=== PATIENT | male | born 1950 | race Caucasian/White ===

== ENCOUNTER 2021-05-15 12:51 | Emergency (ER) | payer OTHER ==
[~2021-05-15] VITALS: Ht 180.3 cm; Wt 93.0 kg
[2021-05-15 14:00] VITALS: BP 135/59
== END 2021-05-15 14:36 | disposition home or self-care (01) ==
LOC: ER 12:51
DX: S29.011A Strain of muscle and tendon of front wall of thorax, initial encounter (principal); V43.52XA Car driver injured in collision with other type car in traffic accident, initial encounter; Y93.89 Activity, other specified; Y92.89 Other specified places as the place of occurrence of the external cause; Y99.8 Other external cause status
CPT/HCPCS: 71101

== ENCOUNTER 2023-01-31 04:09 | Emergency (ER) | payer OTHER ==
[2023-01-31] MEDS ORDERED: EPINEPHrine HCL 250 ML IV ONE (04:18)
[2023-01-31 04:20] VITALS: PULSE 110; RESP 24; TEMP 96.5; O2SAT 86
[2023-01-31] MEDS ORDERED: EPINEPHrine HCL 250 ML IV SCH (04:30)
[2023-01-31 05:12] LABS: INR 1.26 (0.9-1.15); Partial Thromboplastin Time 48.1 SEC (24.5-34.5)
[2023-01-31] MEDS ORDERED: DOBUTamine 1000MCG/ML 250 ML IV ONE ×3 (05:13→06:57)
[2023-01-31 05:18] LABS: Urine Bacteria NONE SEEN /hpf (None Seen); Urine Blood 1+ /uL (Negative); Urine Clarity Clear (Clear); Urine Color Colorless (Yellow); Urine Hyaline Cast FEW /lpf (0 - 2); Urine Protein, UAD Negative (Negative); Urine Specific Gravity 1.024 (1.001-1.035); Urine Urobilinogen Normal (Negative); Urine WBC 3 /hpf (0 - 3); Urine pH 6.5 (5.0-8.0)
[2023-01-31 05:19] LABS: Alanine Aminotransferase 71 U/L (7-40); Albumin 3.2 g/dL (3.2-4.8); Alkaline Phosphatase 90 U/L (46-116); Anion Gap 15.9 (5-15); Aspartate Aminotransferase 100 U/L (13-40); BUN/Creatinine Ratio 10.2 (10.0-20.0); Bilirubin, Total 0.2 mg/dL (0.2-1.0); Blood Urea Nitrogen 13 mg/dL (9-23); Calcium 10.2 mg/dL (8.7-10.4); Carbon Dioxide 17.1 mmol/L (20-30); Chloride 107 mmol/L (98-107); Lipase 34 U/L (12-53); Potassium 4.3 mmol/L (3.5-5.1); Sodium 140 mmol/L (136-145)
[2023-01-31 05:38] LABS: Glucose 409 mg/dL (74-106)
[2023-01-31] MEDS ORDERED: NOREPINEPHRINE 8 MG/250ML KIT 250 ML IV ONE (05:52)
[2023-01-31] MEDS ORDERED: PIPERACILLIN-TAZOB 3.375GM 100 ML IV ONE (06:00)
[2023-01-31] MEDS ORDERED: DOPamine 1600MCG/ML D5W 250 ML IV ONE (06:12)
[2023-01-31 06:16] LABS: Base Excess -15.6 mmol/L (-2.0-2.0)
[2023-01-31] MEDS ORDERED: DOPamine 1600MCG/ML D5W 250 ML IV SCH (06:30)
[2023-01-31] MEDS ORDERED: GLUCAGON EMERG KIT 1mg/1ml ONE (06:32)
[2023-01-31 06:38] LABS: Basophils # (auto) 0.1 10 ^3/uL (0-0.2); Basophils % (auto) 0.7 % (0.0-2.0); Eosinophils # (auto) 0.2 10 ^3/uL (0-0.8); Eosinophils % (auto) 1.8 % (0.0-7.0); Hemoglobin 14.5 g/dL (13.5-17.5); Lymphocytes # (auto) 5.3 10 ^3/uL (0.4-5.4); Lymphocytes % (auto) 43.7 % (10.0-50.0); Mean Corpuscular Hemoglobin 30.5 pg (28.0-32.0); Mean Corpuscular Hgb Conc. 32.3 g/dL (32.0-36.0); Mean Corpuscular Volume 94.7 fL (80.0-100.0); Monocytes # (auto) 0.6 10 ^3/uL (0-1.3); Monocytes % (auto) 4.6 % (0.0-12.0); Neutrophils % (auto) 49.2 % (37.0-80.0); Nucleated Red Blood Cells % 0.4 %; Red Blood Cells 4.75 10^6/uL (4.5-5.90); Red Cell Distribution Width 15.5 % (11.8-14.3); White Blood Cell 12.2 10^3/uL (4.4-10.8)
[2023-01-31 06:46] LABS: Alanine Aminotransferase 108 U/L (7-40); Albumin 3.3 g/dL (3.2-4.8); Alkaline Phosphatase 109 U/L (46-116); Anion Gap 13.1 (5-15); Aspartate Aminotransferase 195 U/L (13-40); BUN/Creatinine Ratio 7.8 (10.0-20.0); Blood Urea Nitrogen 9 mg/dL (9-23); Carbon Dioxide 18.9 mmol/L (20-30); Chloride 108 mmol/L (98-107); Glucose 323 mg/dL (74-106); Potassium 4.6 mmol/L (3.5-5.1); Sodium 140 mmol/L (136-145)
[2023-01-31 06:47] LABS: Bilirubin, Total 0.3 mg/dL (0.2-1.0); Total Protein 5.5 g/dL (5.7-8.2)
[2023-01-31 07:00] VITALS: BP 41/21; PULSE 81; RESP 20; O2SAT 77
== END 2023-01-31 07:10 ==
LOC: EDBD 04:09 → ER 04:09 → EDUNIT# 04:09 → ER 07:10
DX: I46.9 Cardiac arrest, cause unspecified (principal); I10 Essential (primary) hypertension; E78.5 Hyperlipidemia, unspecified; Z79.899 Other long term (current) drug therapy; Z79.01 Long term (current) use of anticoagulants
CPT/HCPCS: 36415; 36600; 71045; 80053; 81001; 82805; 83690; 84484; 85025; 85610; 85730; 86850; 86900; 86901; 87070; 87077; 87186; 87205; 92950; 93005; 99291; J0171; J1250; J1265; J1610